=== PATIENT | female | born 1950 | race Caucasian/White ===

== ENCOUNTER → 2017-10-18 | Outpatient (CLI) | payer OTHER ==
[~2017-10-18] MED LIST: LISINOPRIL10 MG PO
== END ==
LOC: M.ULTRA 08:44
DX: N63.20 Unspecified lump in the left breast, unspecified quadrant (principal)

== ENCOUNTER → 2018-04-24 | Outpatient (CLI) | payer OTHER | LOC: M.ULTRA 09:40 | DX: M79.89 Other specified soft tissue disorders (principal); M79.662 Pain in left lower leg; I83.892 Varicose veins of left lower extremity with other complications ==

== ENCOUNTER 2018-07-20 17:38 | Emergency (ER) | payer OTHER ==
[~2018-07-20] VITALS: Ht 162.6 cm; Wt 77.1 kg
[2018-07-20] MEDS ORDERED: LISINOPRIL10 MG PO (17:47)
[2018-07-20 17:58] LABS: ABSOLUTE BASOPHILS 0.1 thou/uL (0.0-0.2); ABSOLUTE EOSINOPHILS 0.2 thou/uL (0.0-0.7); ABSOLUTE LYMPHOCYTES 2.3 thou/uL (0.8-5.3); ABSOLUTE MONOCYTES 1.7 thou/uL (0.0-1.2); ABSOLUTE NEUTROPHILS 7.7 thou/uL (1.6-8.1); BASOPHILS 0.5 %; EOSINOPHILS 1.8 %; HEMATOCRIT 39.7 % (37.0-47.0); HEMOGLOBIN 13.2 gm/dL (12.0-15.0); LYMPHOCYTES 19.2 %; MCH 30.1 pg (26.0-34.0); MCHC 33.3 g/dL (28.0-37.0); MCV 90.5 fL (80.0-100.0); MONOCYTES 14.1 %; MPV 7.8 fl. (7.2-11.1); NUCLEATED RBCS 0 /100WBC; PLATELET COUNT* 274 thou/uL (150-400); POLYS 64.4 %; RBC 4.39 mil/uL (4.20-5.00); WBC 11.9 thou/uL (4.0-11.0)
[2018-07-20 18:15] LABS: APTT 29.6 Seconds (25.0-31.3); PROTIME 10.7 Seconds (9.20-11.50)
[2018-07-20 18:25] LABS: ANION GAP 8 mmol/L (7-16); BUN 7 mg/dL (7-18); CALCIUM 8.4 mg/dL (8.5-10.1); CHLORIDE 103 mmol/L (98-107); CO2 27 mmol/L (21-32); CREATININE 0.7 mg/dL (0.6-1.3); GLUCOSE 94 mg/dL (70-99); POTASSIUM 3.5 mmol/L (3.5-5.1); SODIUM 138 mmol/L (136-145)
[2018-07-20 18:43] LABS: ALKALINE PHOSPHATASE 141 U/L (46-116); CK-MB MASS < 0.5 ng/mL (<0.5-3.6); LIPASE 114 U/L (73-393); MAGNESIUM 1.9 mg/dL (1.8-2.4); NT-PRO BRAIN NAT PEPTIDE 153 pg/mL (<300); SGOT 19 U/L (15-37); SGPT 18 U/L (30-65); TOTAL BILIRUBIN 0.6 mg/dL (<0.1-1.0); TOTAL PROTEIN 7.5 g/dL (6.4-8.2); TROPONIN-I LEVEL <0.06 ng/mL (<0.06)
[2018-07-20 19:18] VITALS: BP 130/64
--- NOTE | 2018-07-21 11:55 | EKG ---
[place] [address] ELECTROCARDIOGRAM REPORT Name: SMITA MONTE Room: [facility]#: [id number] Admission: 07/20/18 Attend Phys: Discharge: 07/20/18 Date of : 54 Report #: [id number] THIS REPORT FOR: //name// [facility] ED Test Date: 2018-07-20 Test Time: 17:43:16 Pat Name: SMITA MONTE Department: Room: Gender: F [employer]: VELIA : 1950 Requested By: Mayco Decker Order Number: [id number] MD: Indra Jenkins Measurements Intervals [place] Rate: 63 P: 11 MO: 157 QRS: -2 QRSD: 111 T: 63 QT: 457 QTc: 468 Interpretive Statements Sinus rhythm Nonspecific T abnormalities, anterior leads No previous ECG available for comparison Electronically Signed On 07-21-2018 11:55:31 CDT by Indra Jenkins [email or web address] <ELECTRONICALLY SIGNED> By: Indra Jenkins MD, [facility] 07/21/18 1155 1743 1743 Indra Jenkins MD, FACC /EPI
== END 2018-07-20 19:18 | disposition home or self-care (01) ==
LOC: M.ERS 17:38
PROVIDERS: Family Medicine
DX: R07.9 Chest pain, unspecified (principal); I10 Essential (primary) hypertension; Z98.84 Bariatric surgery status

== ENCOUNTER 2019-07-14 07:30 | Emergency (ER) | payer OTHER ==
[~2019-07-14] VITALS: Ht 162.6 cm; Wt 72.6 kg
[2019-07-14] MEDS ORDERED: ZPAK PO (09:08)
[2019-07-14] MEDS ORDERED: VENTOLIN HFA 1818 GM INH (09:08)
[2019-07-14 09:28] VITALS: BP 142/58
== END 2019-07-14 09:29 | disposition home or self-care (01) ==
LOC: M.ERS 07:30
DX: J18.9 Pneumonia, unspecified organism (principal); I10 Essential (primary) hypertension; F17.210 Nicotine dependence, cigarettes, uncomplicated

== ENCOUNTER → 2019-09-18 | Outpatient (CLI) | payer OTHER ==
[~2019-09-18] MED LIST changes: +VENTOLIN HFA 1818 GM INH; +ZPAK PO
== END ==
LOC: M.RAD 10:54
DX: M25.761 Osteophyte, right knee (principal)